=== PATIENT | male | born 1980 ===

== ENCOUNTER → 2024-10-08 08:20 | Outpatient (REF) | payer OTHER, SELFPAY | LOC: CLINIC 08:20 | PROVIDERS: ATTENDING PHYSICIAN Internal Medicine | DX: R91.1 Solitary pulmonary nodule (principal) | CPT/HCPCS: 70450; 71250 ==

== ENCOUNTER 2024-10-12 07:15 | Outpatient (RCR) | payer OTHER, SELFPAY | END 2024-10-12 23:59 | disposition home or self-care (01) | LOC: RPT 07:15 | PROVIDERS: ATTENDING PHYSICIAN Internal Medicine; FAMILY PHYSICIAN Nurse Practitioner Adult Health | DX: M79.18 Myalgia, other site (principal); M54.59 Other low back pain; Z73.6 Limitation of activities due to disability; M62.81 Muscle weakness (generalized) | CPT/HCPCS: 97110; 97162; 97535 ==

== ENCOUNTER 2024-10-29 13:47 | Outpatient (RCR) | payer OTHER, SELFPAY | END 2024-10-29 23:59 | disposition home or self-care (01) | LOC: RPT 13:47 | PROVIDERS: ATTENDING PHYSICIAN Internal Medicine; FAMILY PHYSICIAN Nurse Practitioner Adult Health | DX: M79.18 Myalgia, other site (principal); M54.59 Other low back pain; Z73.6 Limitation of activities due to disability; M62.81 Muscle weakness (generalized); R20.0 Anesthesia of skin; M54.6 Pain in thoracic spine | CPT/HCPCS: 97010; 97110 ==

== ENCOUNTER 2025-02-15 06:26 | Day surgery (SDC) | payer OTHER, SELFPAY | END 2025-02-15 11:04 | disposition home or self-care (01) | LOC: GI 06:26 | PROVIDERS: ATTENDING PHYSICIAN Internal Medicine Gastroenterology | DX: K62.5 Hemorrhage of anus and rectum (principal); K64.8 Other hemorrhoids; R10.11 Right upper quadrant pain; R10.13 Epigastric pain; K62.1 Rectal polyp; K29.50 Unspecified chronic gastritis without bleeding; B96.81 Helicobacter pylori [H. pylori] as the cause of diseases classified elsewhere | CPT/HCPCS: 45380; 43239; 88305; 88342 ==